=== PATIENT | male | born 1940 | race Caucasian/White ===

== ENCOUNTER 2018-11-20 05:52 | Inpatient (IN) | payer OTHER ==
[~2018-11-20] VITALS: Ht 185.4 cm; Wt 122.0 kg
[2018-11-20] VITALS (26 sets, daily range): BP systolic 114–197; BP diastolic 37–70
[~2018-11-20 05:52] MED LIST: ASPIR 8181 MG PO; CALCIUM 600 MG1 EAC2 PO; CENTRUM SILVER1 EAC2 PO; COZAAR 50 MG TA50 M2 PO; FISH OIL 1,001000 M2 PO; LIPITOR20 MG PO; NITROGLYCERIN0.4 MG SUBLING
[2018-11-20 06:36] LABS: ABSOLUTE BASOPHILS 0.1 thou/uL (0.0-0.2); ABSOLUTE EOSINOPHILS 0.1 thou/uL (0.0-0.7); ABSOLUTE LYMPHOCYTES 1.6 thou/uL (0.8-5.3); ABSOLUTE MONOCYTES 0.8 thou/uL (0.0-1.2); ABSOLUTE NEUTROPHILS 5.4 thou/uL (1.6-8.1); BASOPHILS 0.6 %; EOSINOPHILS 1.5 %; HEMATOCRIT 44.6 % (42.0-52.0); LYMPHOCYTES 20.5 %; MCH 30.5 pg (26.0-34.0); MCHC 33.7 g/dL (28.0-37.0); MCV 90.6 fL (80.0-100.0); MONOCYTES 10.5 %; MPV 10.2 fl. (7.2-11.1); NUCLEATED RBCS 0 /100WBC; PLATELET COUNT* 149 thou/uL (150-400); POLYS 66.9 %; RBC 4.93 mil/uL (4.50-6.00); RDW-CV 14.6 % (10.5-14.5)
[2018-11-20 06:45] LABS: CALCIUM 9.1 mg/dL (8.5-10.1); POTASSIUM 4.3 mmol/L (3.5-5.1)
--- NOTE | 2018-11-20 11:35 | OP ---
[address] [address] OPERATIVE REPORT Name: MAXSAUL ESCALANTE Room: [address] IN M.R.#: [id number] Admission: 11/20/18 Attend Phys: Jeremy Hughes DO Discharge: Date of : 42 Report #: [id number] THIS REPORT FOR: //name// CC: Jeremy Short DATE OF SERVICE: 11/20/2018 PREOPERATIVE DIAGNOSIS: Asymptomatic high-grade right carotid artery stenosis. POSTOPERATIVE DIAGNOSIS: Asymptomatic high-grade right carotid artery stenosis. OPERATION: 1. Right carotid endarterectomy with bovine pericardial patch angioplasty. 2. Completion intraoperative duplex. SURGEON: Jeremy Hughes DO CHERRY SORTER: ERIN Marcos ANESTHESIA: General. ESTIMATED BLOOD LOSS: 100 mL. FLUIDS: About 800 mL crystalloid. URINE OUTPUT: None. SPECIMENS: Right carotid plaque. IMPLANTS: A 0.8 x 8 bovine pericardial patch on right carotid artery. COMPLICATIONS: None. FINDINGS: Completion duplex demonstrated no intraluminal defects, had good flow through the external and continuous diastolic flow through the internal carotid artery. CLINICAL HISTORY: The patient is a 78-year-old man who was found to have asymptomatic high-grade right carotid artery stenosis, recommended for a carotid endarterectomy for stroke risk reduction. DETAILS OF PROCEDURE: After informed consent was obtained, the patient was taken to the operating room and placed on the OR bed in supine position. He was administered general anesthesia by Anesthesia team. Right neck was prepped and draped in the usual sterile fashion. Full timeout was performed identifying [address] [address] OPERATIVE REPORT Name: SAUL SANTANA Room: [address] ADM IN M.R.#: [id number] Admission: 11/20/18 Attend Phys: Jeremy Hughes DO Discharge: Date of : 42 Report #: [id number] correct patient and procedure. Next, a longitudinal incision made along the anterior border of sternocleidomastoid. Dissection was carried down through skin and subcutaneous tissues with both sharp and electrocautery. The facial vein was identified, was circumferentially mobilized, ligated between 2-0 silk ties and divided. Then the carotid sheath circumferentially dissected out the common carotid artery, controlled this with an umbilical tape and Rumel tourniquet. I then dissected out the external carotid artery, controlled this with a Silastic vessel loop in Mendoza fashion. I then dissected out the distal internal carotid artery, controlled with Silastic vessel loop as well. I administered 8000 units of intravenous heparin. This was allowed to circulate for 3 minutes and sequentially clamped the internal followed by the external common carotid arteries. Longitudinal arteriotomy extended with Mendoza scissors under normal internal and common carotid artery. I placed a 10-Indonesian Pimento shunt in standard fashion. Doppler interrogation confirmed flow through the shunt. I then performed endarterectomy and eversion endarterectomy of the external carotid artery, telling good distal endpoint in the distal internal carotid artery. I then freed up all intimal debris and flushed with heparinized saline. We then performed a patch angioplasty with bovine pericardial patch with running 6-0 Prolene suture. Prior to completion of the suture line, the shunt was removed. The artery was allowed to fore and backbleed and flushed with heparinized saline. Completed the patch, restored flow first up the external carotid artery, and after several heartbeats of the internal carotid artery. I then performed a completion intraoperative duplex, which again demonstrated no intraluminal defects and good flow through the external and continuous diastolic flow through the internal carotid artery. Partially reversed the heparin with 50 mg of protamine. Once hemostasis was ensured, it was irrigated with antibiotic solution and was closed in layers with 2-0 and 3-0 Vicryl, 4-0 Monocryl on the skin. Local anesthetic was infiltrated. He was extubated in the operating room, awakened, neurologically intact, moving upper and lower extremities appropriately to command, and was taken to recovery room in stable condition. All sponge, sharp, and instrument counts reported correct x 2. He tolerated the procedure well. <ELECTRONICALLY SIGNED> By: Jeremy Hughes DO 11/20/18 1135 1010 1113Aantonio Hughes DO /nt
[2018-11-20 12:12] LABS: HEMATOCRIT 40.2 % (42.0-52.0); HEMOGLOBIN 13.5 gm/dL (14.0-18.0); MCH 30.7 pg (26.0-34.0); MCHC 33.7 g/dL (28.0-37.0); MCV 91.2 fL (80.0-100.0); MPV 10.1 fl. (7.2-11.1); RBC 4.41 mil/uL (4.50-6.00); RDW-CV 14.3 % (10.5-14.5); WBC 9.7 thou/uL (4.0-11.0)
[2018-11-20 12:20] LABS: POTASSIUM 4.1 mmol/L (3.5-5.1)
--- NOTE | 2018-11-20 17:07 | EKG ---
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1940 Requested By: Jeremy Hughes Order Number: [id number] Edvin MD: Dung Cardenas Measurements Intervals [place] Rate: 50 P: 36 CO: 197 QRS: 17 QRSD: 137 T: 95 QT: 435 QTc: 397 Interpretive Statements Sinus rhythm Nonspecific intraventricular conduction delay Minimal ST depression, lateral leads Compared to ECG 10/12/2014 10:33:17 Intraventricular conduction delay now present ST (T wave) deviation still present Electronically Signed On 11-20-2018 17:07:01 CDT by Dung Cardenas [email or web address] <ELECTRONICALLY SIGNED> By: Dung Cardenas MD, [facility] 11/20/18 1707 0730 0730 Dung Cardenas MD, [facility] /EPI
[2018-11-21] VITALS (10 sets, daily range): BP systolic 120–164; BP diastolic 33–81
[2018-11-21 05:35] LABS: HEMATOCRIT 38.1 % (42.0-52.0); HEMOGLOBIN 12.9 gm/dL (14.0-18.0); MCH 30.6 pg (26.0-34.0); MCHC 33.9 g/dL (28.0-37.0); MCV 90.3 fL (80.0-100.0); MPV 10.9 fl. (7.2-11.1); NUCLEATED RBCS 0 /100WBC; PLATELET COUNT* 129 thou/uL (150-400); RBC 4.22 mil/uL (4.50-6.00); RDW-CV 14.6 % (10.5-14.5); WBC 15.3 thou/uL (4.0-11.0)
[2018-11-21 05:52] LABS: CALCIUM 8.4 mg/dL (8.5-10.1); POTASSIUM 4.6 mmol/L (3.5-5.1)
[2018-11-21 06:19] LABS: ABSOLUTE LYMPHOCYTES 0.9 thou/uL (0.8-5.3); ABSOLUTE MONOCYTES 1.5 thou/uL (0.0-1.2); ABSOLUTE NEUTROPHILS 12.9 thou/uL (1.6-8.1); ANISOCYTOSIS 1+; LARGE PLATELETS OCCASIONAL; PLATELET ESTIMATE DECREASED; POIKILOCYTOSIS 1+
[2018-11-21] MEDS ORDERED: SENNA PLUS TAB1 EACH PO (10:34)
[2018-11-21] MEDS ORDERED: NORCO 5-325 TA1 EACH PO (10:41)
--- NOTE | 2018-11-22 15:05 | PATH ---
[facility] [address] [place] [address] PATHOLOGY RPT PROCEDURE Name: JUAN SANTANA Room: [address] IN M.R.#: [id number] Admission: 11/20/18 Date of : 42 Discharge: 11/21/18 Report #: [id number] Path Case #: [id number] [facility] Accession Number: [id number] . 01 Material submitted: . carotid body - RIGHT CAROTID PLAQUE. Modifiers: right . 01 Clinical history: . Right carotid stenosis . 02 Diagnosis: Right carotid plaque: - Fibrointimal atherosclerotic plaque with calcification. (SHON:rogelio; 11/22/2018) QMS/11/22/2018 . 02 Electronically signed: . Tristen Ferraro MD, Pathologist NPI- [id number] . 01 Gross description: . The specimen is received in formalin, labeled "Aide, Juan, right carotid plaque", is a previously opened, yellow-garduno cylindrical segment and fragments measuring 1.5 x 0.8 x 0.7 cm. The wall is fibrotic and friable with the intima showing attached dark brown hemorrhagic/calcified material. Adjunct Instructor Chemistry sections are submitted in A1 after decalcification. (SWS; 11/21/2018) SHS/SHS . 02 Pathologist provided ICD-10: I65.21 . 02 CPT . 035386, [id number] Specimen Comment: A courtesy copy of this report has been sent to Specimen Comment: [phone], . Specimen Comment: Report sent to / DR KELLER Performed at: [address], [place], [place] [id number] MD Anil Burrows MD Phone: [phone] Performed at: 02 [facility] [address], [place], [place] [id number] MD Tristen Ferraro MD Phone: [phone]
== END 2018-11-21 11:37 | disposition home or self-care (01) | DRG 39 ==
LOC: M.ICU 05:52 → M.TBA 05:52 → M.SUR 07:26 → M.PRE 08:22 → EDSTATUS 08:45 → M.PRE 08:48 → M.ICU 11:29 → M.PRE 12:46 → M.ICU 19:26
PROVIDERS: Surgery; ADMIT Family Medicine
PROC: 03UM0KZ Supplement Right External Carotid Artery with Nonautologous Tissue Substitute, Open Approach (ICD-10-PCS; principal; 2018-11-20)
PROC: 03CM0ZZ Extirpation of Matter from Right External Carotid Artery, Open Approach (ICD-10-PCS; principal; 2018-11-20)
DX: I65.21 Occlusion and stenosis of right carotid artery (principal); I25.10 Atherosclerotic heart disease of native coronary artery without angina pectoris; I10 Essential (primary) hypertension; K59.00 Constipation, unspecified; R00.1 Bradycardia, unspecified; Z96.1 Presence of intraocular lens; Z98.42 Cataract extraction status, left eye; Z98.41 Cataract extraction status, right eye; Z95.1 Presence of aortocoronary bypass graft; Z79.82 Long term (current) use of aspirin; Z79.899 Other long term (current) drug therapy

== ENCOUNTER 2020-01-16 09:59 | Inpatient (IN) | payer OTHER ==
[~2020-01-16] VITALS: Ht 188 cm; Wt 122.5 kg
--- NOTE | ~2020-01-16 | H ---
[address] [address] HISTORY AND PHYSICAL Name: SAUL SANTANA Room: [address] IN ..#: [id number] Admission: 01/16/20 Attend Phys: Gretta Metzger MD Discharge: 01/16/20 Date of : 42 Report #: [id number] THIS REPORT FOR: //name// cc: Kiah Short Mohammad K. DO ~ THIS REPORT FOR: //name// Patient was here less than 24 hour please refer to the final summation note. Patient transferred from the Emergency Room. By: [facility] HospitalMedical Records Staff [facility] /LUIS ARMANDO
[~2020-01-16 09:59] MED LIST changes: +NORCO 5-325 TA1 EACH PO; +SENNA PLUS TAB1 EACH PO
[2020-01-16 10:11] VITALS: BP 225/77
[2020-01-16] MEDS ORDERED: FLOMAX0.4 MG PO (10:13)
[2020-01-16 10:49] LABS: ABSOLUTE BASOPHILS 0.1 thou/uL (0.0-0.2); ABSOLUTE EOSINOPHILS 0.1 thou/uL (0.0-0.7); ABSOLUTE LYMPHOCYTES 1.4 thou/uL (0.8-5.3); ABSOLUTE MONOCYTES 0.7 thou/uL (0.0-1.2); ABSOLUTE NEUTROPHILS 4.4 thou/uL (1.6-8.1); BASOPHILS 0.9 %; EOSINOPHILS 1.2 %; HEMOGLOBIN 12.3 gm/dL (14.0-18.0); MCH 31.1 pg (26.0-34.0); MCHC 34.2 g/dL (28.0-37.0); MCV 90.9 fL (80.0-100.0); MONOCYTES 9.9 %; NUCLEATED RBCS 0 /100WBC; PLATELET COUNT* 107 thou/uL (150-400); RBC 3.96 mil/uL (4.50-6.00); RDW-CV 14.2 % (10.5-14.5); WBC 6.5 thou/uL (4.0-11.0)
[2020-01-16 10:57] LABS: CALCIUM 8.1 mg/dL (8.5-10.1); CREATININE 1.2 mg/dL (0.6-1.3); POTASSIUM 3.8 mmol/L (3.5-5.1)
[2020-01-16 11:02] LABS: ALBUMIN 3.7 g/dL (3.4-5.0); TOTAL BILIRUBIN 0.5 mg/dL (<0.1-1.0); TOTAL PROTEIN 7.5 g/dL (6.4-8.2)
[2020-01-16 13:54] LABS: APTT 27.9 Seconds (25.0-31.3); INR 1.1
--- NOTE | 2020-01-16 16:48 | NUR ---
PT BEING TRANSFERED TO [facility], AWAITING BED PLACEMENT
[2020-01-16 17:47] VITALS: BP 162/61
--- NOTE | 2020-01-16 19:02 | EKG ---
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 <ELECTRONICALLY SIGNED> By: Mikey Lozoya MD, FACC 01/16/20 1902 1037 1037 Mikey Lozoya MD, FAC /EPI
--- NOTE | 2020-01-16 19:04 | EKG ---
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: : 1940 Requested By: Sol Keane Order Number: [id number] Edvin MD: Mikey Lozoya Measurements Intervals [place] Rate: 78 P: 26 MD: 52 QRS: -13 QRSD: 127 T: 35 QT: 488 QTc: 556 Interpretive Statements Sinus rhythm Multiple premature complexes, vent & supraven Short MD interval Compared to ECG 01/16/2020 10:37:09 Short MD interval now present Atrial premature complex(es) no longer present Electronically Signed On 01-16-2020 19:04:25 CDT by Mikey Lozoya [email or web address] <ELECTRONICALLY SIGNED> By: Mikey Lozoya MD, FACC 01/16/20 1904 1456 1456 Mikey Lozoya MD, FACC /EPI
== END 2020-01-16 17:50 | disposition short-term general hospital (02) | DRG 305 ==
LOC: M.ERS 09:59 → M.TBA-ER 15:32
PROVIDERS: Personal Emergency Response Attendant; ADMIT Internal Medicine; ATTEND Internal Medicine
DX: I16.1 Hypertensive emergency (principal); R04.0 Epistaxis; Z20.828 Contact with and (suspected) exposure to other viral communicable diseases; Z98.42 Cataract extraction status, left eye; Z98.41 Cataract extraction status, right eye; Z88.8 Allergy status to other drugs, medicaments and biological substances